=== PATIENT | male | born 1950 | race African-American/Black ===

== ENCOUNTER → 2016-08-12 | Outpatient (CLI) | payer BC ==
[2016-08-13 11:03] LABS: PROSTATE SPECIFIC ANTIGEN 0.1 ng/mL (0.0-4.0); PSA % FREE <10.0 % (.); PSA FREE <0.01 ng/mL
== END ==
LOC: OD 07:26
PROVIDERS: ATTEND Urology
DX: C61 Malignant neoplasm of prostate (principal)
CPT/HCPCS: 36415; 84154

== ENCOUNTER → 2016-11-08 | Outpatient (CLI) | payer BC ==
[2016-11-09 12:29] LABS: PROSTATE SPECIFIC ANTIGEN 0.2 ng/mL (0.0-4.0); PSA % FREE <5.0 % (.); PSA FREE <0.01 ng/mL
== END ==
LOC: OD 07:15
PROVIDERS: ATTEND Urology
DX: R97.20 Elevated prostate specific antigen [PSA] (principal)
CPT/HCPCS: 36415; 84154

== ENCOUNTER → 2016-12-16 | Outpatient (CLI) | payer MEDICARE, BC ==
[2016-12-16 08:22] LABS: ABSOLUTE EOSINOPHILS # (AUTO) 0.1 10^3/uL (0.0-0.6); ABSOLUTE LYMPHOCYTES (AUTO) 2.4 10^3/uL (0.5-4.7); ABSOLUTE MONOCYTES (AUTO) 0.3 10^3/uL (0.1-1.4); ABSOLUTE NEUT (AUTO) 2.4 10^3/uL (1.7-8.2); BASOPHILS % (AUTO) 0.9 % (0-2); EOSINOPHILS % (AUTO) 2.8 % (0-6); HEMATOCRIT 44.2 % (37.9-51.0); HEMOGLOBIN 14.2 g/dL (13.5-17.0); HGB HCT DIFFERENCE -1.6; LYMPHOCYTES % (AUTO) 44.9 % (13-45); MEAN CORPUSCULAR HEMOGLOBIN 27.7 pg (27.0-33.4); MEAN CORPUSCULAR HGB CONC 32.2 g/dL (32.0-36.0); MEAN CORPUSCULAR VOLUME 86 fl (80-97); MONOCYTES % (AUTO) 6.4 % (3-13); RED BLOOD COUNT 5.14 10^6/uL (4.35-5.55); RED CELL DISTRIBUTION WIDTH 14.2 % (11.5-14.0); WHITE BLOOD COUNT 5.3 10^3/uL (4.0-10.5)
[2016-12-16 08:43] LABS: BLOOD UREA NITROGEN 13 mg/dL (7-20); CREATININE RESULT 1.09 mg/dL (0.52-1.25)
== END ==
LOC: OD 07:16
PROVIDERS: ATTEND Radiology Radiation Oncology
DX: C61 Malignant neoplasm of prostate (principal); R97.20 Elevated prostate specific antigen [PSA]
CPT/HCPCS: 36415; 82565; 84153; 84520; 85025

== ENCOUNTER → 2016-12-18 | Outpatient (CLI) | payer BC, MEDICARE ==
--- NOTE | 2016-12-18 15:10 | RADIOLOGY REPORT (SQ) ---
EXAM DESCRIPTION: NM WHOLE BODY BONE SCAN COMPLETED DATE/TIME: 12/18/2016 1:21 pm REASON FOR STUDY: PROSTATE CA (C61), ELEVATED PSA (R97.20) C61 MALIGNANT NEOPLASM OF PROSTATE COMPARISON: No available imaging studies for comparison. RADIONUCLIDE AND DOSE: 21.4 millicuries Tc99m MDP. The route of agent administration: Intravenous. ADDITIONAL DRUGS AND DOSES: None. TECHNIQUE: Routine delayed images at 3 hour post radionuclide injection acquired of the bony skeleto n including anterior and posterior whole-body projections and additional focused images as needed. LIMITATIONS: None. FINDINGS: BONES: There is minimal asymmetric uptake in the left knee most likely degenerative in carole ure. No evidence of bony metastatic disease. Minimal uptake in a left posterolateral rib is most li svetlana posttraumatic. KIDNEYS: Symmetric excretion without obstruction. OTHER: No other significant finding. IMPRESSION: No evidence of bony metastatic disease. COMMENT: RS [id number]: Current bone scan is compared with any available plain radiographs, prior bone scans, and CT/MRI. TECHNICAL DOCUMENTATION: JOB ID: [id number] All Rights Reserved
== END ==
LOC: RAD 09:23
PROVIDERS: ATTEND Radiology Radiation Oncology
DX: C61 Malignant neoplasm of prostate (principal); R97.20 Elevated prostate specific antigen [PSA]
CPT/HCPCS: 78306; A9561; Q9969

== ENCOUNTER → 2016-12-20 | Outpatient (CLI) | payer BC, MEDICARE ==
--- NOTE | 2016-12-20 10:47 | RADIOLOGY REPORT (SQ) ---
EXAM DESCRIPTION: CT ABD/PELVIS WITH IV ORAL COMPLETED DATE/TIME: 12/20/2016 10:21 am REASON FOR STUDY: PROSTATE CA (C61) R97.20 ELEVATED PROSTATE SPECIFIC ANTIGEN PSA COMPARISON: Whole-body bone scan 12/18/2016 TECHNIQUE: CT scan of the abdomen and pelvis performed using helical scanning technique with dynamic intravenous contrast injection. No oral contrast. Images reviewed with lung, soft tissue, and bone windows. Reconstructed coronal and sagittal MPR images reviewed. Delayed images for evaluation of the urinary system also acquired. All images stored on PACS. All CT scanners at this facility use dose modulation, iterative reconstruction, and/or weight based d osing when appropriate to reduce radiation dose to as low as reasonably achievable (ALARA). [facility]: Dose Right [facility]: CareDose [facility]: Dose Right [facility]: Teradose 4D [facility]: YouLike CONTRAST TYPE AND DOSE: contrast/concentration: Isovue 370.00 mg/ml; Total Contrast Delivered: 74.0 ml; Total Saline Delivered: 66.0 ml RENAL FUNCTION: Creatinine 1.09 RADIATION DOSE: Up-to-date CT equipment and radiation dose reduction techniques were employed. CTDIv ol: 4.0 - 4.6 mGy. DLP: 423 mGy-cm.. LIMITATIONS: None. FINDINGS: LOWER CHEST: No significant findings. No nodules or infiltrates. Benign calcified granulo mas at the lung bases. LIVER: Normal size. No masses. No dilated ducts. SPLEEN: Normal size. No focal lesions. PANCREAS: No masses. No significant calcifications. No adjacent inflammation or peripancreatic fluid collections. Pancreatic duct not dilated. GALLBLADDER: No identified stones by CT criteria. No inflammatory changes to suggest cholecystitis. ADRENAL GLANDS: No significant masses or asymmetry. RIGHT KIDNEY AND URETER: No solid masses. No significant calcifications. No hydronephrosis or hyd roureter. LEFT KIDNEY AND URETER: No solid masses. No significant calcifications. No hydronephrosis or hydr oureter. AORTA AND VESSELS: No aneurysm. No dissection. Renal arteries, SMA, celiac without stenosis. RETROPERITONEUM: No retroperitoneal adenopathy, hemorrhage or masses. BOWEL AND PERITONEAL CAVITY: No masses or inflammatory changes. No free fluid or peritoneal masses. APPENDIX: Normal. PELVIS: No mass or free fluid. Normal bladder. Surgical clips post prostatectomy. ABDOMINAL WALL: No masses. No hernias. BONES: No significant or acute findings. OTHER: No other significant finding. IMPRESSION: NO SIGNIFICANT OR ACUTE FINDING IN THE ABDOMEN OR PELVIS ON CT SCAN WITH IV CONTRAST. TECHNICAL DOCUMENTATION: JOB ID: [id number] Quality ID # 436: Final reports with documentation of one or more dose reduction techniques (e.g., Au tomated exposure control, adjustment of the mA and/or kV according to patient size, use of iterative reconstruction technique) 2010 [employer]- All Rights Reserved
== END ==
LOC: RAD 09:50
PROVIDERS: ATTEND Radiology Radiation Oncology
DX: C61 Malignant neoplasm of prostate (principal); R97.20 Elevated prostate specific antigen [PSA]
CPT/HCPCS: 74177

== ENCOUNTER → 2016-12-24 | Outpatient (CLI) | payer BC ==
[2016-12-24 10:41] LABS: BLOOD UREA NITROGEN 16 mg/dL (7-20); CREATININE RESULT 1.14 mg/dL (0.52-1.25)
== END ==
LOC: OD 09:18
PROVIDERS: ATTEND Radiology Radiation Oncology
DX: C61 Malignant neoplasm of prostate (principal); R97.20 Elevated prostate specific antigen [PSA]
CPT/HCPCS: 36415; 82565; 84520

== ENCOUNTER → 2017-05-30 | Outpatient (CLI) | payer BC | LOC: OD 07:33 | PROVIDERS: ATTEND Radiology Radiation Oncology | DX: C61 Malignant neoplasm of prostate (principal); R97.20 Elevated prostate specific antigen [PSA] | CPT/HCPCS: 36415; 84153 ==

== ENCOUNTER → 2017-08-29 | Outpatient (CLI) | payer BC, MEDICARE | LOC: OD 07:36 | PROVIDERS: ATTEND Radiology Radiation Oncology | DX: C61 Malignant neoplasm of prostate (principal) | CPT/HCPCS: 36415; 84153 ==

== ENCOUNTER → 2017-12-05 | Outpatient (CLI) | payer BC, MEDICARE | LOC: OD 08:21 | PROVIDERS: ATTEND Radiology Radiation Oncology | DX: C61 Malignant neoplasm of prostate (principal); R97.20 Elevated prostate specific antigen [PSA] | CPT/HCPCS: 36415; 84153 ==

== ENCOUNTER 2019-09-07 16:37 | Inpatient (IN) | payer BC ==
[~2019-09-07 16:37] MED LIST: GLYCOPYRROLATE 1 MG/5 ML VIAL ONE; KETOROLAC TROMETHAMINE 60 MG/2 ML SDV ONE; LIDOCAINE 2% INJ-PF (20 MG/ML) 2 ML AMPUL ONE; NEOSTIGMINE METHYLSULFATE 10 MG/10 ML VIAL ONE; ONDANSETRON HCL INJ/PF 4 MG/2 ML SDV ONE; ROCURONIUM BROMIDE INJ 50 MG/5 ML VIAL IV ONE; SUCCINYLCHOLINE CHLORIDE INJ 200 MG/10 ML VIAL ONE
[2019-09-07] MEDS ORDERED: NORMAL SALINE 1000 ML 1,000 ML IV PRN (17:18)
[2019-09-07] MEDS ORDERED: INFLUENZA QUAD (6MOS+) 2019-20 VAC 0.5 ML SYR IM ONE (17:29)
[2019-09-07] MEDS ORDERED: HYDROMORPHONE HCL INJ/PF 2 MG/ML AMPULE ONE ×2 (17:41→21:27)
[2019-09-07 18:13] LABS: HEMATOCRIT 42.4 % (37.9-51.0); HEMOGLOBIN 14.4 g/dL (13.5-17.0); MEAN CORPUSCULAR HEMOGLOBIN 28.8 pg (27.0-33.4); MEAN CORPUSCULAR VOLUME 85 fl (80-97); PLATELET COUNT 165 10^3/uL (150-450); RED BLOOD COUNT 5.01 10^6/uL (4.35-5.55); RED CELL DISTRIBUTION WIDTH 13.9 % (11.5-14.0); WHITE BLOOD COUNT 7.8 10^3/uL (4.0-10.5)
[2019-09-07 18:31] LABS: ALKALINE PHOSPHATASE 79 U/L (38-126); ANION GAP 9 (5-19); ASPARTATE AMINO TRANSFERASE 27 U/L (17-59); BILIRUBIN,TOTAL 1.7 mg/dL (0.2-1.3); BLOOD UREA NITROGEN 17 mg/dL (7-20); CALCIUM 9.6 mg/dL (8.4-10.2); CARBON DIOXIDE 29 mmol/L (22-30); CHLORIDE 101 mmol/L (98-107); GLUCOSE 132 mg/dL (75-110); POTASSIUM 3.4 mmol/L (3.6-5.0); TOTAL PROTEIN 7.3 g/dL (6.3-8.2)
--- NOTE | 2019-09-07 20:23 | RADIOLOGY REPORT (SQ) ---
EXAM DESCRIPTION: CT ABDOMEN PELVIS WITH IV CONTRAST COMPLETED DATE/TME: 09/07/2019 00:00 CLINICAL HISTORY: 69 years, Male, Abdominal pain/vomiting COMPARISON: Multiple priors, most recent from 12/20/2016 TECHNIQUE: Contrast enhanced CT of the abdomen/pelvis was performed. Images were obtained after the uneventful administration of 100 mL of Omnipaque 350 intravenous contrast. Images stored on PACS. All CT scanners at this facility use dose modulation, iterative reconstruction, and/or weight based dosing when appropriate to reduce radiation dose to as low as reasonably achievable (ALARA). [facility]: Dose Right [facility]: CareDose [facility]: Dose Right [facility]: Teradose 4D [facility]: PhotoTLC LIMITATIONS: None. FINDINGS: Limited evaluation of the lower chest reveals bands of opacity about both lung bases, indicating areas of atelectasis and/or scar. Calcifications are noted about the coronary vessels. There is a trace pericardial effusion. Liver enhances normally. Spleen, pancreas, bladder, and both adrenal glands appear normal. Both kidneys enhance symmetrically. There is no hydronephrosis or hydroureter. The urinary bladder is partially collapsed, thus its evaluation is limited. Multiple surgical clips are noted about the low pelvis at the expected site of the prostate. The large bowel is overall collapsed. Appendix is not visualized; however, no pericecal inflammatory changes are appreciated. The stomach is diffusely distended with fluid. In addition, there is segmental dilatation of small bowel loops within the left hemiabdomen. 2 transition points are identified, specifically on image 42 of series 3 as well as image 46 of series 3. The small bowel located in between these 2 transition sites appears mildly thick-walled. In addition, there is mild infiltration of the mesentery at the site with associated small amount of free mesenteric fluid. The small bowel distal to the second transition point is diffusely collapsed. Calcifications are evident about the abdominal aorta. Otherwise, vascular structures appeared opacify with contrast normally. No lymphadenopathy is appreciated. Bone windows show no destructive osseous lesions. IMPRESSION: Overall, findings indicate a closed loop small bowel obstruction located within the left hemiabdomen. Associated mild wall thickening is noted about the small bowel intervening the two transition points. In addition, there is a small amount of reactive mesenteric fluid as well as inflammation. Trace pericardial effusion. TECHNICAL DOCUMENTATION: Quality ID # 436: Final reports with documentation of one or more dose reduction techniques (e.g., Automated exposure control, adjustment of the mA and/or kV according to patient size, use of iterative reconstruction technique) copyright 2011 [employer]- All Rights Reserved
[2019-09-07] MEDS ORDERED: DEXTROSE 5%-LACTATED RINGERS 1,000 ML IV PRN (20:47)
[2019-09-07] MEDS ORDERED: LABETALOL HCL INJ 20 MG/4 ML DISP.SYRIN IV PRN (20:51)
--- NOTE | 2019-09-07 20:58 | PDOC H&P ---
History of Present Illness Admission Date/PCP: 09/07/19 16:37 ESPINOZA VALLE MD History of Present Illness: FLORI GARCIA is a 69 year old male, He came to the office today for evaluation of 1 day history of abdominal pain associated with vomiting, in the office he was evaluated there was tenderness around the umbilical area, there was cough impulse, he has an incision above the umbilicus, patient stated that the decision was when he had robotic prostatectomy. I was particularly concerned about obstruction or incarcerated small bowel so I offered the hospital admission directly for further evaluation. He was kept n.p.o. CAT scan of the abdomen and pelvis with IV contrast was obtained it demonstrated a closed-loop small bowel obstruction located within the left hemiabdomen. Associated mild wall thickening is noted of the small bowel intervening the 2 transition points also found was a small amount of reactive mesenteric fluid. I spoke to Dr. lieberman the surgeon concrete polisher he was kind enough to see the patient in consultation patient will require laparotomy tonight Past Medical History Cardiac Medical History: Reports: Hypertension - on meds Malignancy Medical History: Reports: Other - Prostate cancer Musculoskeltal Medical History: Reports: Arthritis - back Psychiatric Medical History: Denies: Depression Hematology: Denies: Anemia Social History Smoking Status: Former Smoker Cigarettes Packs Per Day: 1 Electronic Cigarette use?: No Cigars Per Day: 0 Pipes Per Day: 0 Number of Years Smokin Last Time Smoked: 06/16/2004 Frequency of Alcohol Use: None Hx Recreational Drug Use: No Hx Prescription Drug Abuse: No Family History Family History: Reviewed & Not Pertinent Parental Family History Reviewed: Yes Children Family History Reviewed: Yes Sibling(s) Family History Reviewed.: Yes Medication/Allergy Home Medications: Metoprolol Succinate [Toprol XL 100 mg Tablet] 50 mg PO DAILY 07/24/15 Amlodipine Besylate [Norvasc 10 mg Tablet] 10 mg PO DAILY 09/07/19 Losartan Potassium [Cozaar 25 mg Tablet] 25 mg PO DAILY 09/07/19 Sildenafil Citrate 100 mg PO DAILY PRN 09/07/19 Tamsulosin HCl [Flomax] 0.4 mg PO DAILY 09/07/19 Allergies/Adverse Reactions: No Known Allergies Allergy (Verified 09/07/19 18:56) Review of Systems Constitutional: ABSENT: chills, fever(s), headache(s), weight gain, weight loss Eyes: ABSENT: visual disturbances Ears: ABSENT: hearing changes Cardiovascular: ABSENT: chest pain, dyspnea on exertion, edema, orthropnea, palpitations Respiratory: ABSENT: cough, hemoptysis Gastrointestinal: PRESENT: abdominal pain, vomiting. ABSENT: constipation, diarrhea, hematemesis, hematochezia, nausea Genitourinary: ABSENT: dysuria, hematuria Musculoskeletal: ABSENT: joint swelling Integumentary: ABSENT: rash, wounds Neurological: ABSENT: abnormal gait, abnormal speech, confusion, dizziness, focal weakness, syncope Psychiatric: ABSENT: anxiety, depression, homidical ideation, suicidal ideation Endocrine: ABSENT: cold intolerance, heat intolerance, menstrual abnormalities, polydipsia, polyuria Hematologic/Lymphatic: ABSENT: easy bleeding, easy bruising, lymphadenopathy Physical Exam Vital Signs: Temp Pulse Resp BP Pulse Ox 98.5 F 65 20 161/76 H 100 09/07/19 17:09 09/07/19 17:09 09/07/19 17:09 09/07/19 17:09 09/07/19 17:09 Intake & Output 09/06/19 09/07/19 09/08/19 06:59 06:59 06:59 Weight 72.6 kg General appearance: PRESENT: no acute distress Eye exam: PRESENT: PERRLA Respiratory exam: PRESENT: clear to auscultation heidi Cardiovascular exam: PRESENT: +S1, +S2 GI/Abdominal exam: PRESENT: tenderness Neurological exam: PRESENT: alert, CN II-XII grossly intact Results Laboratory Results: 09/07/19 18:03 09/07/19 18:03 09/07/19 09/07/19 18:03 18:03 WBC 7.8 RBC 5.01 Hgb 14.4 Hct 42.4 MCV 85 MCH 28.8 MCHC 34.0 RDW 13.9 Plt Count 165 Sodium 138.6 Potassium 3.4 L Chloride 101 Carbon Dioxide 29 Anion Gap 9 BUN 17 Creatinine 0.95 Est GFR ( Amer) > 60 Glucose 132 H Calcium 9.6 Total Bilirubin 1.7 H AST 27 Alkaline Phosphatase 79 Total Protein 7.3 Albumin 4.0 Impressions: Abdomen/Pelvis CT 09/07/19 00:00 IMPRESSION: Overall, findings indicate a closed loop small bowel obstruction located within the left hemiabdomen. Associated mild wall thickening is noted about the small bowel intervening the two transition points. In addition, there is a small amount of reactive mesenteric fluid as well as inflammation. Trace pericardial effusion. TECHNICAL DOCUMENTATION: Quality ID # 436: Final reports with documentation of one or more dose reduction techniques (e.g., Automated exposure control, adjustment of the mA and/or kV according to patient size, use of iterative reconstruction technique) copyright 2011 [employer]- All Rights Reserved Assessment & Plan - Diagnosis (1) Small bowel obstruction Is this a current diagnosis for this admission?: Yes Plan: Consultation obtained from surgery, patient will require emergent laparotomy tonight (2) Essential (primary) hypertension Is this a current diagnosis for this admission?: Yes Plan: The blood pressure is elevated, he normally uses ARB for the control blood pressure but a beta-naveed will be a better option at this time because he is going for surgery, ARB is also associated with postoperative hypotension, patient will be started on labetalol 20 mg IV every 4 hours to hold for systolic below 120 (3) Personal history of malignant neoplasm of prostate Is this a current diagnosis for this admission?: Yes Plan: This was treated with robotic prostatectomy
--- NOTE | 2019-09-07 21:24 | PDOC CONSULTATION ---
Consultation Consult Date: 09/07/19 Provider Consulted: FAVIAN ALMANZA History of Present Illness Admission Date/PCP: 09/07/19 20:47 ESPINOZA VALLE MD Patient complains of: Nausea vomiting History of Present Illness: FLORI GARCIA is a 69 year old male with history of robotic prostatectomy s everal years ago and known history of incisional hernia at trocar site at the supraumbilical region now presenting with 1 day history of abdominal distention with bilious emesis. Patient has had some pain at the supraumbilical trocar site as well today. Was noted with some tenderness at this region. But he has been having the sort of symptoms for a while: what is unusual today is his diffuse abdominal distention and bilious emesis. Past Medical History Cardiac Medical History: Reports: Hypertension - on meds Denies: Coronary Artery Disease, Myocardial Infarction Pulmonary Medical History: Denies: Asthma, Bronchitis, Chronic Obstructive Pulmonary Disease (COPD), Pneumonia Neurological Medical History: Denies: Seizures Musculoskeltal Medical History: Reports: Arthritis - back Psychiatric Medical History: Denies: Depression Hematology: Denies: Anemia Past Surgical History Past Surgical History: Reports: Other - Robotic prostatectomy followed by radiation treatment Social History Smoking Status: Former Smoker Cigarettes Packs Per Day: 1 Electronic Cigarette use?: No Cigars Per Day: 0 Pipes Per Day: 0 Number of Years Smokin Last Time Smoked: 06/16/2004 Frequency of Alcohol Use: None - Drink heavily multiple years ago. Hx Recreational Drug Use: No Hx Prescription Drug Abuse: No Family History Family History: Reviewed & Not Pertinent Parental Family History Reviewed: Yes Children Family History Reviewed: Yes Sibling(s) Family History Reviewed.: Yes Medication/Allergy Home Medications: Metoprolol Succinate [Toprol XL 100 mg Tablet] 50 mg PO DAILY 07/24/15 Amlodipine Besylate [Norvasc 10 mg Tablet] 10 mg PO DAILY 09/07/19 Losartan Potassium [Cozaar 25 mg Tablet] 25 mg PO DAILY 09/07/19 Sildenafil Citrate 100 mg PO DAILY PRN 09/07/19 Tamsulosin HCl [Flomax] 0.4 mg PO DAILY 09/07/19 Allergies/Adverse Reactions: No Known Allergies Allergy (Verified 09/07/19 18:56) Review of Systems All systems: reviewed and no additional remarkable complaints except as stated Gastrointestinal: PRESENT: as per HPI Physical Exam Vital Signs: Temp Pulse Resp BP Pulse Ox 98.6 F 75 15 153/87 H 100 09/07/19 20:49 09/07/19 20:49 09/07/19 20:49 09/07/19 20:49 09/07/19 20:49 Intake & Output 09/06/19 09/07/19 09/08/19 06:59 06:59 06:59 Weight 72.6 kg General appearance: PRESENT: no acute distress, cooperative Eye exam: PRESENT: conjunctiva pink Neck exam: PRESENT: other - Supple with no tenderness and no masses Respiratory exam: PRESENT: clear to auscultation heidi Cardiovascular exam: PRESENT: RRR GI/Abdominal exam: PRESENT: other - Distended, soft but fairly tight without significant tenderness. Patient does have a supraumbilical midline incision with a palpable bulge that is reducible. Neurological exam: PRESENT: alert, awake Psychiatric exam: PRESENT: appropriate affect Skin exam: PRESENT: warm Results Laboratory Results: 09/07/19 18:03 09/07/19 18:03 09/07/19 09/07/19 18:03 18:03 WBC 7.8 RBC 5.01 Hgb 14.4 Hct 42.4 MCV 85 MCH 28.8 MCHC 34.0 RDW 13.9 Plt Count 165 Sodium 138.6 Potassium 3.4 L Chloride 101 Carbon Dioxide 29 Anion Gap 9 BUN 17 Creatinine 0.95 Est GFR ( Amer) > 60 Glucose 132 H Calcium 9.6 Total Bilirubin 1.7 H AST 27 Alkaline Phosphatase 79 Total Protein 7.3 Albumin 4.0 Impressions: Abdomen/Pelvis CT 09/07/19 00:00 IMPRESSION: Overall, findings indicate a closed loop small bowel obstruction located within the left hemiabdomen. Associated mild wall thickening is noted about the small bowel intervening the two transition points. In addition, there is a small amount of reactive mesenteric fluid as well as inflammation. Trace pericardial effusion. TECHNICAL DOCUMENTATION: Quality ID # 436: Final reports with documentation of one or more dose reduction techniques (e.g., Automated exposure control, adjustment of the mA and/or kV according to patient size, use of iterative reconstruction technique) copyright 2011 [employer]- All Rights Reserved Assessment & Plan - Diagnosis (1) Small bowel obstruction Is this a current diagnosis for this admission?: Yes Plan: CT scan concerning for closed-loop obstruction with bowel wall thickening and mesenteric inflammatory changes. In light of the CT scan finding I have recommended to the patient exploratory laparotomy with lysis of adhesions and possible bowel resection. I have explained to the patient the risk of nonoperative management in this setting, mainly risk of bowel ischemia and . I strongly feel that immediate surgery is the best option for the patient. I have discussed with the patient the risk and benefits of the surgery including risk mistaken diagnosis, infection, bleeding, adjacent structure injury such as bowel injury, risk of recurrent bowel obstruction in the future, and heart lung complication risks.. Also risk of abdominal hernia formation. I will plan repair of his incisional hernia at the same time as his surgery and there is risk of hernia recurrence. Patient understands and agrees to proceed. (2) Incisional hernia Is this a current diagnosis for this admission?: Yes Plan: I do not think it is playing a role in the bowel obstruction however we will plan repair at the same time as a surgery. Patient understands risk of hernia recurrence.
[2019-09-07] MEDS: ENOXAPARIN SODIUM INJ 40 MG/0.4 ML DISP.SYRIN SUBCUT SCH (21:26)
[2019-09-07] MEDS ORDERED: FENTANYL CITRATE INJ/PF 250 MCG/5 ML AMPULE ONE (21:27)
[2019-09-07] MEDS ORDERED: MIDAZOLAM 2 MG/2 ML INJ ONE (21:27)
--- NOTE | 2019-09-07 21:27 | RADIOLOGY REPORT (SQ) ---
EXAM DESCRIPTION: XR CHEST 1 VIEW COMPLETED DATE/TME: 09/07/2019 20:50 CLINICAL HISTORY: 69 years, Male, pre op -small bowel obstruction COMPARISON: Prior study from 07/24/2015 NUMBER OF VIEWS: One TECHNIQUE: Single frontal view of the chest was obtained. LIMITATIONS: None. FINDINGS: Cardiac and mediastinal contours are stable. Lungs are clear. No pleural effusion or pneumothorax. IMPRESSION: No acute disease. copyright 2010 [employer]- All Rights Reserved
[2019-09-07] MEDS ORDERED: PROPOFOL INJ 200 MG/20 ML VIAL IV ONE (21:28)
[2019-09-07] MEDS ORDERED: BUPIVACAINE HCL 0.25 % INJ/PF (2.5 MG/1 ML) 30 ML VIAL ONE (21:49)
[2019-09-07] MEDS ORDERED: CEFAZOLIN INJ 1 GM VIAL ONE (21:58)
[2019-09-08] MEDS ORDERED: DIPHENHYDRAMINE HCL 50 MG/ML VIAL IV PRN (00:07)
[2019-09-08] MEDS ORDERED: ONDANSETRON HCL INJ/PF 4 MG/2 ML SDV IV PRN (00:07)
[2019-09-08] MEDS ORDERED: MORPHINE SULFATE 10 MG/ML INJ IV PRN (00:07)
[2019-09-08] MEDS ORDERED: PROMETHAZINE HCL INJ 25 MG/1 ML VIAL IV PRN (00:07)
[2019-09-08] MEDS ORDERED: OXYCODONE-ACETAMINOPHEN 5-325 MG TABLET PO PRN ×2 (00:07)
[2019-09-08] MEDS ORDERED: MEPERIDINE HCL/PF INJ 25 MG/1 ML DISP.SYRIN IV PRN (00:07)
[2019-09-08] MEDS ORDERED: FENTANYL CITRATE INJ/PF 100 MCG/2 ML AMPUL IV PRN ×3 (00:07)
--- NOTE | 2019-09-08 00:16 | Operative Report ---
Operative Report DATE OF SURGERY: 09/07/19 PREOPERATIVE DIAGNOSIS: Small bowel obstruction, incisional hernia POSTOPERATIVE DIAGNOSIS: Small bowel obstruction, incisional hernia OPERATION: Exploratory laparotomy, lysis of adhesions, incisional hernia repair. SURGEON: FAVIAN ALMANZA ANESTHESIA: GA TISSUE REMOVED OR ALTERED: Hernia sac removed but not submitted to pathology. COMPLICATIONS: None ESTIMATED BLOOD LOSS: Minimal INTRAOPERATIVE FINDINGS: Approximately 2 cm fascial defect at the supraumbilical region consistent with an incisional hernia but no evidence of incarceration at this point. Serous free peritoneal fluid. Small bowel obstruction at the distal jejunal level with a loop of jejunum that appeared edematous and erythematous that likely herniated through an adhesion between the omentum and the small bowel. The very distal terminal ileum with a fibrous adhesion with an acutely angled turn. PROCEDURE: Informed consent was obtained. Patient was brought to the operating room and placed on the operating table in the supine position. After satisfactory induction of general anesthesia patient's abdomen was prepped and draped in usual sterile fashion. A midline incision was made beginning just above his pre-existing supraumbilical scar and extending it to below the umbilicus. Dissection was carried down and the peritoneal cavity was entered without difficulty at the level of the umbilicus. The fascia was incised inferiorly and then superiorly. The incisional hernia fascial defect was clearly defined and the hernia sac was excised but not submitted to pathology. There was no evidence of bowel incarceration in the hernia sac. The fascial defect had to be extended superiorly in order to complete the exploratory laparotomy. There was some serous peritoneal fluid. The small bowel was eviscerated. The distal small bowel appeared decompressed. The small bowel was run more proximally where I encountered a loop of bowel that was erythematous and edematous. This loop of bowel was gently pulled out of the abdomen. The bowel proximal to this area appeared normal with no erythema and was slightly distended. In the left abdomen I encountered omental adhesions which were lysed. I suspect that the loop of bowel had herniated through an internal hernia created by the omental adhesion. The small bowel was run from the ligament of Treitz all the way down to the ileocecal junction. At the very distal aspect of the terminal ileum there was a severely acute angle turn with an associated fibrous adhesion. This fibrous adhesion was sharply dissected away thus relieving this acutely angled turn. Great care was taken to avoid injury to the bowel. Hemostasis appeared to be good. The small bowel was returned into the peritoneal cavity. Palpation of the liver demonstrated normal feeling liver and gallbladder. The NG position was confirmed by palpation. The peritoneal surface felt smooth with no nodularity. On limited palpation of the colon, no obvious abnormalities were noted. The omentum was draped over the small bowel. Sponge needle instrument counts were all correct. The fascial edges were clearly defined to allow closure to include the hernia as part of the closure. Fascia was closed with a running looped PDS suture. Marcaine was injected at the operative site. Skin was closed with ramon. Patient tolerated procedure well with no apparent complications and was taken to the recovery area in stable condition.
[2019-09-08] MEDS ORDERED: PHARMACY COMMUNICATION ORDER MC NR (00:30)
[2019-09-08 00:33] LABS: APPEARANCE,URINE CLEAR; BILIRUBIN,URINE NEGATIVE (NEGATIVE); COLOR,URINE YELLOW; GLUCOSE, URINE NEGATIVE (NEGATIVE); KETONES,URINE NEGATIVE (NEGATIVE); LEUKOCYTE ESTERASE,URINE NEGATIVE (NEGATIVE); NITRITE,URINE NEGATIVE (NEGATIVE); PROTEIN,URINE NEGATIVE (NEGATIVE); URINE SPECIFIC GRAVITY 1.043; UROBILINOGEN,URINE NEGATIVE mg/dL (<2.0)
[2019-09-08 05:16] LABS: ABSOLUTE LYMPHOCYTES (AUTO) 0.8 10^3/uL (0.5-4.7); ABSOLUTE MONOCYTES (AUTO) 0.6 10^3/uL (0.1-1.4); ABSOLUTE NEUT (AUTO) 4.5 10^3/uL (1.7-8.2); BASOPHILS % (AUTO) 0.2 % (0-2); EOSINOPHILS % (AUTO) 0.7 % (0-6); HEMATOCRIT 44.2 % (37.9-51.0); LYMPHOCYTES % (AUTO) 13.7 % (13-45); MEAN CORPUSCULAR HEMOGLOBIN 29.1 pg (27.0-33.4); MEAN CORPUSCULAR HGB CONC 33.9 g/dL (32.0-36.0); MEAN CORPUSCULAR VOLUME 86 fl (80-97); MONOCYTES % (AUTO) 9.7 % (3-13); PLATELET COUNT 156 10^3/uL (150-450); RED BLOOD COUNT 5.15 10^6/uL (4.35-5.55); SEGMENTED NEUTROPHILS % (AUTO) 75.7 % (42-78); TOTAL CELLS COUNTED % (AUTO) 100 %
[2019-09-08 05:29] LABS: ALBUMIN 3.5 g/dL (3.5-5.0); ALKALINE PHOSPHATASE 65 U/L (38-126); ANION GAP 8 (5-19); ASPARTATE AMINO TRANSFERASE 25 U/L (17-59); BILIRUBIN,TOTAL 1.8 mg/dL (0.2-1.3); BLOOD UREA NITROGEN 16 mg/dL (7-20); CALCIUM 9.1 mg/dL (8.4-10.2); CARBON DIOXIDE 30 mmol/L (22-30); CHLORIDE 102 mmol/L (98-107); GLUCOSE 123 mg/dL (75-110); POTASSIUM 3.9 mmol/L (3.6-5.0); TOTAL PROTEIN 6.5 g/dL (6.3-8.2)
[2019-09-08] MEDS: DEXTROSE 5%-LACTATED RINGERS 1,000 ML IV PRN ×2 (08:14→16:06)
[2019-09-08] MEDS: MORPHINE SULFATE 10 MG/ML INJ IV PRN ×2 (08:20→17:06)
[2019-09-08] MEDS ORDERED: LOSARTAN POTASSIUM 25 MG TABLET PO SCH (10:00)
[2019-09-08] MEDS ORDERED: (PENDING PHARMACY ID) (Metoprolol Succinate [Toprol Xl 100 Mg Tablet] 50 MG) PO SCH (10:00)
[2019-09-08] MEDS ORDERED: AMLODIPINE BESYLATE 10 MG TABLET PO SCH (10:00)
[2019-09-08] MEDS: AMLODIPINE BESYLATE 10 MG TABLET NG SCH (10:22)
[2019-09-08] MEDS: LOSARTAN POTASSIUM 25 MG TABLET NG SCH (10:22)
[2019-09-08] MEDS: FAMOTIDINE INJ/PF 20 MG/2 ML SDV IV SCH ×2 (10:22→22:19)
[2019-09-08] MEDS: ENOXAPARIN SODIUM INJ 40 MG/0.4 ML DISP.SYRIN SUBCUT SCH (10:22)
--- NOTE | 2019-09-08 11:19 | EKG REPORT ---
SEVERITY:- ABNORMAL ECG - SINUS RHYTHM MULTIPLE VENTRICULAR PREMATURE COMPLEXES : Confirmed by: Enoch Sarmiento MD 08-Sep-2019 11:18:35
[2019-09-08] MEDS ORDERED: PHENOL/SODIUM PHENOLATE 100 SPRAY/177 ML BOTTLE PO PRN (13:22)
--- NOTE | 2019-09-08 13:44 | PDOC PROGRESS REPORT ---
Subjective Progress Note for:: 09/08/19 Reason For Visit: SMALL BOWEL OBSTRUCTION Physical Exam Vital Signs: Temp Pulse Resp BP Pulse Ox 98.6 F 73 16 141/67 H 99 09/08/19 11:40 09/08/19 11:40 09/08/19 11:40 09/08/19 11:40 09/08/19 11:40 Intake & Output 09/07/19 09/08/19 09/09/19 06:59 06:59 06:59 Intake Total 3500 1000 Output Total 1550 250 Balance 1950 750 Weight 76.1 kg Results Laboratory Results: 09/08/19 04:51 09/08/19 04:51 09/07/19 09/07/19 09/07/19 18:03 18:03 20:15 WBC 7.8 RBC 5.01 Hgb 14.4 Hct 42.4 MCV 85 MCH 28.8 MCHC 34.0 RDW 13.9 Plt Count 165 Seg Neutrophils % Sodium 138.6 Potassium 3.4 L Chloride 101 Carbon Dioxide 29 Anion Gap 9 BUN 17 Creatinine 0.95 Est GFR ( Amer) > 60 Glucose 132 H Calcium 9.6 Total Bilirubin 1.7 H AST 27 Alkaline Phosphatase 79 Total Protein 7.3 Albumin 4.0 Urine Color YELLOW Urine Appearance CLEAR Urine pH 6.0 Ur Specific [place] 1.043 Urine Protein NEGATIVE Urine Glucose (UA) NEGATIVE Urine Ketones NEGATIVE Urine Blood NEGATIVE Urine Nitrite NEGATIVE Ur Leukocyte Esterase NEGATIVE Urine WBC (Auto) 0 Urine RBC (Auto) 1 Blood Type Antibody Screen 09/07/19 09/08/19 09/08/19 21:40 04:51 04:51 WBC 6.0 RBC 5.15 Hgb 15.0 Hct 44.2 MCV 86 MCH 29.1 MCHC 33.9 RDW 14.0 Plt Count 156 Seg Neutrophils % 75.7 Sodium 139.9 Potassium 3.9 Chloride 102 Carbon Dioxide 30 Anion Gap 8 BUN 16 Creatinine 0.90 Est GFR ( Amer) > 60 Glucose 123 H Calcium 9.1 Total Bilirubin 1.8 H AST 25 Alkaline Phosphatase 65 Total Protein 6.5 Albumin 3.5 Urine Color Urine Appearance Urine pH Ur Specific [place] Urine Protein Urine Glucose (UA) Urine Ketones Urine Blood Urine Nitrite Ur Leukocyte Esterase Urine WBC (Auto) Urine RBC (Auto) Blood Type B POSITIVE Antibody Screen NEGATIVE Impressions: Abdomen/Pelvis CT 09/07/19 00:00 IMPRESSION: Overall, findings indicate a closed loop small bowel obstruction located within the left hemiabdomen. Associated mild wall thickening is noted about the small bowel intervening the two transition points. In addition, there is a small amount of reactive mesenteric fluid as well as inflammation. Trace pericardial effusion. TECHNICAL DOCUMENTATION: Quality ID # 436: Final reports with documentation of one or more dose reduction techniques (e.g., Automated exposure control, adjustment of the mA and/or kV according to patient size, use of iterative reconstruction technique) copyright 2011 [facility]- All Rights Reserved Chest X-Ray 09/07/19 20:50 IMPRESSION: No acute disease. copyright 2011 [facility]- All Rights Reserved Assessment & Plan - Diagnosis (1) Small bowel obstruction Is this a current diagnosis for this admission?: Yes - Plan Summary Plan Summary: This is a 69-year-old male status post ex lap for small bowel obstruction. The patient is doing well this morning. He denies any flatus at this time. He denies fevers, chills, nausea, vomiting. He does report incisional pain, that is relieved with intravenous medications. I have encouraged the patient to ambulate today. I will remove his [place] catheter. Leave NG to suction. Aggressive pulmonary toilet. Ambulate. Awaiting bowel function.
--- NOTE | 2019-09-08 18:36 | PDOC PROGRESS REPORT ---
Subjective Progress Note for:: 09/08/19 Subjective:: Patient seen by the bedside, status post laparotomy, he has no peristalsis yet still n.p.o. NG tube in place Reason For Visit: SMALL BOWEL OBSTRUCTION Physical Exam Vital Signs: Temp Pulse Resp BP Pulse Ox 98.3 F 76 18 148/73 H 97 09/08/19 15:27 09/08/19 15:27 09/08/19 15:27 09/08/19 15:27 09/08/19 15:27 Intake & Output 09/07/19 09/08/19 09/09/19 06:59 06:59 06:59 Intake Total 3500 2000 Output Total 1550 450 Balance 1950 1550 Weight 76.1 kg General appearance: PRESENT: no acute distress Eye exam: PRESENT: PERRLA Respiratory exam: PRESENT: clear to auscultation hedii Cardiovascular exam: PRESENT: +S1, +S2 GI/Abdominal exam: PRESENT: soft, other - bandage in place Neurological exam: PRESENT: alert, CN II-XII grossly intact Results Laboratory Results: 09/08/19 04:51 09/08/19 04:51 09/07/19 09/07/19 09/07/19 18:03 20:15 21:40 WBC RBC Hgb Hct MCV MCH MCHC RDW Plt Count Seg Neutrophils % Sodium 138.6 Potassium 3.4 L Chloride 101 Carbon Dioxide 29 Anion Gap 9 BUN 17 Creatinine 0.95 Est GFR ( Amer) > 60 Glucose 132 H Calcium 9.6 Total Bilirubin 1.7 H AST 27 Alkaline Phosphatase 79 Total Protein 7.3 Albumin 4.0 Urine Color YELLOW Urine Appearance CLEAR Urine pH 6.0 Ur Specific [place] 1.043 Urine Protein NEGATIVE Urine Glucose (UA) NEGATIVE Urine Ketones NEGATIVE Urine Blood NEGATIVE Urine Nitrite NEGATIVE Ur Leukocyte Esterase NEGATIVE Urine WBC (Auto) 0 Urine RBC (Auto) 1 Blood Type B POSITIVE Antibody Screen NEGATIVE 09/08/19 09/08/19 04:51 04:51 WBC 6.0 RBC 5.15 Hgb 15.0 Hct 44.2 MCV 86 MCH 29.1 MCHC 33.9 RDW 14.0 Plt Count 156 Seg Neutrophils % 75.7 Sodium 139.9 Potassium 3.9 Chloride 102 Carbon Dioxide 30 Anion Gap 8 BUN 16 Creatinine 0.90 Est GFR ( Amer) > 60 Glucose 123 H Calcium 9.1 Total Bilirubin 1.8 H AST 25 Alkaline Phosphatase 65 Total Protein 6.5 Albumin 3.5 Urine Color Urine Appearance Urine pH Ur Specific [place] Urine Protein Urine Glucose (UA) Urine Ketones Urine Blood Urine Nitrite Ur Leukocyte Esterase Urine WBC (Auto) Urine RBC (Auto) Blood Type Antibody Screen Impressions: Abdomen/Pelvis CT 09/07/19 00:00 IMPRESSION: Overall, findings indicate a closed loop small bowel obstruction located within the left hemiabdomen. Associated mild wall thickening is noted about the small bowel intervening the two transition points. In addition, there is a small amount of reactive mesenteric fluid as well as inflammation. Trace pericardial effusion. TECHNICAL DOCUMENTATION: Quality ID # 436: Final reports with documentation of one or more dose reduction techniques (e.g., Automated exposure control, adjustment of the mA and/or kV according to patient size, use of iterative reconstruction technique) copyright 2011 [employer]- All Rights Reserved Chest X-Ray 09/07/19 20:50 IMPRESSION: No acute disease. copyright 2011 [employer]- All Rights Reserved Assessment & Plan - Diagnosis (1) Small bowel obstruction Is this a current diagnosis for this admission?: Yes Plan: Status post day 1 postoperative (2) Essential (primary) hypertension Is this a current diagnosis for this admission?: Yes Plan: Continue intravenous labetalol, once p.o. resumes patient will be started back on metoprolol (3) Personal history of malignant neoplasm of prostate Is this a current diagnosis for this admission?: Yes - Time Time Spent with patient: 25-34 minutes Level of Care: MEDICAL
[2019-09-09] MEDS: DEXTROSE 5%-LACTATED RINGERS 1,000 ML IV PRN ×3 (00:12→21:41)
[2019-09-09] MEDS: HYDROMORPHONE HCL INJ/PF 2 MG/ML AMPULE IV PRN ×4 (00:12→20:14)
[2019-09-09 06:38] LABS: ABSOLUTE LYMPHOCYTES (AUTO) 1.1 10^3/uL (0.5-4.7); ABSOLUTE MONOCYTES (AUTO) 0.5 10^3/uL (0.1-1.4); ABSOLUTE NEUT (AUTO) 4.2 10^3/uL (1.7-8.2); BASOPHILS % (AUTO) 0.2 % (0-2); EOSINOPHILS % (AUTO) 0.8 % (0-6); HEMATOCRIT 40.5 % (37.9-51.0); HEMOGLOBIN 13.7 g/dL (13.5-17.0); LYMPHOCYTES % (AUTO) 19.2 % (13-45); MEAN CORPUSCULAR HEMOGLOBIN 28.8 pg (27.0-33.4); MEAN CORPUSCULAR HGB CONC 33.8 g/dL (32.0-36.0); MEAN CORPUSCULAR VOLUME 85 fl (80-97); MONOCYTES % (AUTO) 8.5 % (3-13); PLATELET COUNT 163 10^3/uL (150-450); RED BLOOD COUNT 4.75 10^6/uL (4.35-5.55); SEGMENTED NEUTROPHILS % (AUTO) 71.3 % (42-78); TOTAL CELLS COUNTED % (AUTO) 100 %
--- NOTE | 2019-09-09 08:46 | PDOC PROGRESS REPORT ---
Subjective Progress Note for:: 09/09/19 Subjective:: Feels okay. Not passing any gas. Reason For Visit: SMALL BOWEL OBSTRUCTION Physical Exam Vital Signs: Temp Pulse Resp BP Pulse Ox 99.1 F 83 17 149/79 H 93 09/09/19 07:16 09/09/19 07:16 09/09/19 07:16 09/09/19 07:16 09/09/19 07:16 Intake & Output 09/08/19 09/09/19 09/10/19 06:59 06:59 06:59 Intake Total 3500 3000 Output Total 1550 1050 Balance 1950 1950 Weight 76.1 kg 76.1 kg General appearance: PRESENT: no acute distress, cooperative Respiratory exam: PRESENT: clear to auscultation heidi Cardiovascular exam: PRESENT: RRR GI/Abdominal exam: PRESENT: other - Soft, mildly distended, NG output is bilious. Minimal tenderness. Extremities exam: PRESENT: other - No swelling and no tenderness Results Laboratory Results: 09/09/19 06:05 09/08/19 04:51 09/09/19 06:05 WBC 6.0 RBC 4.75 Hgb 13.7 Hct 40.5 MCV 85 MCH 28.8 MCHC 33.8 RDW 14.0 Plt Count 163 Seg Neutrophils % 71.3 Impressions: Abdomen/Pelvis CT 09/07/19 00:00 IMPRESSION: Overall, findings indicate a closed loop small bowel obstruction located within the left hemiabdomen. Associated mild wall thickening is noted about the small bowel intervening the two transition points. In addition, there is a small amount of reactive mesenteric fluid as well as inflammation. Trace pericardial effusion. TECHNICAL DOCUMENTATION: Quality ID # 436: Final reports with documentation of one or more dose reduction techniques (e.g., Automated exposure control, adjustment of the mA and/or kV according to patient size, use of iterative reconstruction technique) copyright 2011 [employer]- All Rights Reserved Chest X-Ray 09/07/19 20:50 IMPRESSION: No acute disease. copyright 2011 [employer]- All Rights Reserved Assessment & Plan - Diagnosis (1) Small bowel obstruction Is this a current diagnosis for this admission?: Yes Plan: That is post lysis of adhesions. Patient looks good postoperatively. However he still does not have resumption of bowel function. With his bilious output through the NG tube we will keep the NG tube in. Encourage ambulation. Await bowel function. (2) Incisional hernia Is this a current diagnosis for this admission?: Yes
[2019-09-09] MEDS: AMLODIPINE BESYLATE 10 MG TABLET NG SCH (09:51)
[2019-09-09] MEDS: FAMOTIDINE INJ/PF 20 MG/2 ML SDV IV SCH ×2 (09:51→21:40)
[2019-09-09] MEDS: LOSARTAN POTASSIUM 25 MG TABLET NG SCH (09:51)
[2019-09-09] MEDS: ENOXAPARIN SODIUM INJ 40 MG/0.4 ML DISP.SYRIN SUBCUT SCH (09:59)
--- NOTE | 2019-09-09 20:19 | PDOC PROGRESS REPORT ---
Subjective Progress Note for:: 09/09/19 Subjective:: Patient seen by the bedside for possible laparotomy he has not passed any gas yet, bowel movement yet to return still n.p.o. with NG tube in place Reason For Visit: SMALL BOWEL OBSTRUCTION Physical Exam Vital Signs: Temp Pulse Resp BP Pulse Ox 99.2 F 77 16 165/74 H 93 09/09/19 15:34 09/09/19 15:34 09/09/19 15:34 09/09/19 15:34 09/09/19 15:34 Intake & Output 09/08/19 09/09/19 09/10/19 06:59 06:59 06:59 Intake Total 3500 4000 Output Total 1550 1050 825 Balance 1950 2950 -825 Weight 76.1 kg 76.1 kg General appearance: PRESENT: no acute distress Eye exam: PRESENT: PERRLA Respiratory exam: PRESENT: clear to auscultation heidi Cardiovascular exam: PRESENT: +S1, +S2 GI/Abdominal exam: PRESENT: soft Neurological exam: PRESENT: alert Results Laboratory Results: 09/09/19 06:05 09/08/19 04:51 09/09/19 06:05 WBC 6.0 RBC 4.75 Hgb 13.7 Hct 40.5 MCV 85 MCH 28.8 MCHC 33.8 RDW 14.0 Plt Count 163 Seg Neutrophils % 71.3 Impressions: Abdomen/Pelvis CT 09/07/19 00:00 IMPRESSION: Overall, findings indicate a closed loop small bowel obstruction located within the left hemiabdomen. Associated mild wall thickening is noted about the small bowel intervening the two transition points. In addition, there is a small amount of reactive mesenteric fluid as well as inflammation. Trace pericardial effusion. TECHNICAL DOCUMENTATION: Quality ID # 436: Final reports with documentation of one or more dose reduction techniques (e.g., Automated exposure control, adjustment of the mA and/or kV according to patient size, use of iterative reconstruction technique) copyright 2011 [employer]- All Rights Reserved Chest X-Ray 09/07/19 20:50 IMPRESSION: No acute disease. copyright 2011 [employer]- All Rights Reserved Assessment & Plan - Diagnosis (1) Small bowel obstruction Is this a current diagnosis for this admission?: Yes (2) Essential (primary) hypertension Is this a current diagnosis for this admission?: Yes Plan: Continue intravenous labetalol, once p.o. resumes patient will be started back on metoprolol (3) Personal history of malignant neoplasm of prostate Is this a current diagnosis for this admission?: Yes - Time Time Spent with patient: 35 or more minutes Level of Care: MEDICAL
[2019-09-10] MEDS: MORPHINE SULFATE 10 MG/ML INJ IV PRN (05:09)
[2019-09-10] MEDS: DEXTROSE 5%-LACTATED RINGERS 1,000 ML IV PRN ×3 (05:09→19:59)
[2019-09-10 05:42] LABS: ABSOLUTE EOSINOPHILS # (AUTO) 0.2 10^3/uL (0.0-0.6); ABSOLUTE LYMPHOCYTES (AUTO) 1.1 10^3/uL (0.5-4.7); ABSOLUTE MONOCYTES (AUTO) 0.6 10^3/uL (0.1-1.4); ABSOLUTE NEUT (AUTO) 2.3 10^3/uL (1.7-8.2); BASOPHILS % (AUTO) 0.4 % (0-2); EOSINOPHILS % (AUTO) 3.8 % (0-6); HEMATOCRIT 40.2 % (37.9-51.0); HEMOGLOBIN 13.6 g/dL (13.5-17.0); LYMPHOCYTES % (AUTO) 26.2 % (13-45); MEAN CORPUSCULAR HEMOGLOBIN 28.7 pg (27.0-33.4); MEAN CORPUSCULAR HGB CONC 33.7 g/dL (32.0-36.0); MEAN CORPUSCULAR VOLUME 85 fl (80-97); MONOCYTES % (AUTO) 13.4 % (3-13); PLATELET COUNT 151 10^3/uL (150-450); RED BLOOD COUNT 4.73 10^6/uL (4.35-5.55); RED CELL DISTRIBUTION WIDTH 13.9 % (11.5-14.0); SEGMENTED NEUTROPHILS % (AUTO) 56.2 % (42-78); TOTAL CELLS COUNTED % (AUTO) 100 %; WHITE BLOOD COUNT 4.2 10^3/uL (4.0-10.5)
[2019-09-10] MEDS: FAMOTIDINE INJ/PF 20 MG/2 ML SDV IV SCH ×2 (09:07→21:37)
[2019-09-10] MEDS: ENOXAPARIN SODIUM INJ 40 MG/0.4 ML DISP.SYRIN SUBCUT SCH (09:08)
[2019-09-10] MEDS: AMLODIPINE BESYLATE 10 MG TABLET NG SCH (09:09)
[2019-09-10] MEDS: LOSARTAN POTASSIUM 25 MG TABLET NG SCH (09:09)
--- NOTE | 2019-09-10 11:17 | PDOC PROGRESS REPORT ---
Subjective Progress Note for:: 09/10/19 Subjective:: Feels well but has not passed any gas yet. Reason For Visit: SMALL BOWEL OBSTRUCTION Physical Exam Vital Signs: Temp Pulse Resp BP Pulse Ox 98.8 F 69 18 160/81 H 95 09/10/19 07:52 09/10/19 07:52 09/10/19 07:52 09/10/19 07:52 09/10/19 07:52 Intake & Output 09/09/19 09/10/19 09/11/19 06:59 06:59 06:59 Intake Total 4000 2000 Output Total 1050 1375 Balance 2950 625 Weight 76.1 kg 76.1 kg General appearance: PRESENT: no acute distress, cooperative Respiratory exam: PRESENT: clear to auscultation heidi Cardiovascular exam: PRESENT: RRR GI/Abdominal exam: PRESENT: other - Soft, mildly distended, mild tenderness at the midline but otherwise no other tenderness. Diminished bowel sounds. NG output is still bile tinged. Extremities exam: PRESENT: other - No swelling and no tenderness. Results Laboratory Results: 09/10/19 05:03 09/08/19 04:51 09/10/19 05:03 WBC 4.2 RBC 4.73 Hgb 13.6 Hct 40.2 MCV 85 MCH 28.7 MCHC 33.7 RDW 13.9 Plt Count 151 Seg Neutrophils % 56.2 Impressions: Abdomen/Pelvis CT 09/07/19 00:00 IMPRESSION: Overall, findings indicate a closed loop small bowel obstruction located within the left hemiabdomen. Associated mild wall thickening is noted about the small bowel intervening the two transition points. In addition, there is a small amount of reactive mesenteric fluid as well as inflammation. Trace pericardial effusion. TECHNICAL DOCUMENTATION: Quality ID # [id number]: Final reports with documentation of one or more dose reduction techniques (e.g., Automated exposure control, adjustment of the mA and/or kV according to patient size, use of iterative reconstruction technique) copyright 2011 [employer]- All Rights Reserved Chest X-Ray 09/07/19 20:50 IMPRESSION: No acute disease. copyright 2011 [employer]- All Rights Reserved Assessment & Plan - Diagnosis (1) Small bowel obstruction Is this a current diagnosis for this admission?: Yes Plan: Status post lysis of adhesions. Still with postoperative ileus. Continue to encourage ambulation. Await bowel function. (2) Incisional hernia Is this a current diagnosis for this admission?: Yes
[2019-09-10] MEDS: HYDROMORPHONE HCL INJ/PF 2 MG/ML AMPULE IV PRN ×2 (16:12→23:22)
--- NOTE | 2019-09-10 20:19 | PDOC PROGRESS REPORT ---
Subjective Progress Note for:: 09/10/19 Subjective:: Patient seen by the bedside for possible laparotomy he has not passed any gas yet, bowel movement yet to return still n.p.o. with NG tube in place Reason For Visit: SMALL BOWEL OBSTRUCTION Physical Exam Vital Signs: Temp Pulse Resp BP Pulse Ox 98.9 F 75 18 157/88 H 96 09/10/19 17:59 09/10/19 17:59 09/10/19 17:59 09/10/19 17:59 09/10/19 17:59 Intake & Output 09/09/19 09/10/19 09/11/19 06:59 06:59 06:59 Intake Total 4000 2000 2000 Output Total 1050 1375 1300 Balance 2950 625 700 Weight 76.1 kg 76.1 kg 76.1 kg General appearance: PRESENT: no acute distress, well-developed, well-nourished Head exam: PRESENT: atraumatic, normocephalic Eye exam: PRESENT: conjunctiva pink, EOMI, PERRLA. ABSENT: scleral icterus Ear exam: PRESENT: normal external ear exam Mouth exam: PRESENT: moist, tongue midline Neck exam: PRESENT: full ROM. ABSENT: carotid bruit, JVD, lymphadenopathy, thyr omegaly Cardiovascular exam: PRESENT: RRR. ABSENT: diastolic murmur, rubs, systolic murmur Pulses: PRESENT: normal dorsalis pedis pul, +2 pedal pulses bilateral Vascular exam: PRESENT: normal capillary refill GI/Abdominal exam: PRESENT: normal bowel sounds, soft. ABSENT: distended, guarding, mass, organolmegaly, rebound, tenderness Rectal exam: PRESENT: deferred Neurological exam: PRESENT: alert, awake, oriented to person, oriented to place, oriented to time, oriented to situation, CN II-XII grossly intact. ABSENT: motor sensory deficit Psychiatric exam: PRESENT: appropriate affect, normal mood. ABSENT: homicidal ideation, suicidal ideation Skin exam: PRESENT: dry, intact, warm. ABSENT: cyanosis, rash Results Laboratory Results: 09/10/19 05:03 09/08/19 04:51 09/10/19 05:03 WBC 4.2 RBC 4.73 Hgb 13.6 Hct 40.2 MCV 85 MCH 28.7 MCHC 33.7 RDW 13.9 Plt Count 151 Seg Neutrophils % 56.2 Impressions: Abdomen/Pelvis CT 09/07/19 00:00 IMPRESSION: Overall, findings indicate a closed loop small bowel obstruction located within the left hemiabdomen. Associated mild wall thickening is noted about the small bowel intervening the two transition points. In addition, there is a small amount of reactive mesenteric fluid as well as inflammation. Trace pericardial effusion. TECHNICAL DOCUMENTATION: Quality ID # 436: Final reports with documentation of one or more dose reduction techniques (e.g., Automated exposure control, adjustment of the mA and/or kV according to patient size, use of iterative reconstruction technique) copyright 2011 [employer]- All Rights Reserved Chest X-Ray 09/07/19 20:50 IMPRESSION: No acute disease. copyright 2011 [employer]- All Rights Reserved Assessment & Plan - Diagnosis (1) Small bowel obstruction Is this a current diagnosis for this admission?: Yes (2) Essential (primary) hypertension Is this a current diagnosis for this admission?: Yes Plan: Continue intravenous labetalol, once p.o. resumes patient will be started back on metoprolol (3) Personal history of malignant neoplasm of prostate Is this a current diagnosis for this admission?: Yes - Time Time Spent with patient: 25-34 minutes Level of Care: MEDICAL
[2019-09-11] MEDS: DEXTROSE 5%-LACTATED RINGERS 1,000 ML IV PRN ×2 (03:51→17:58)
[2019-09-11] MEDS: HYDROMORPHONE HCL INJ/PF 2 MG/ML AMPULE IV PRN (06:36)
[2019-09-11 06:47] LABS: ANION GAP 9 (5-19); BLOOD UREA NITROGEN 7 mg/dL (7-20); CALCIUM 7.2 mg/dL (8.4-10.2); CARBON DIOXIDE 24 mmol/L (22-30); CHLORIDE 103 mmol/L (98-107); GLUCOSE 125 mg/dL (75-110); POTASSIUM 3.3 mmol/L (3.6-5.0)
--- NOTE | 2019-09-11 09:17 | PDOC PROGRESS REPORT ---
Subjective Progress Note for:: 09/11/19 Reason For Visit: SMALL BOWEL OBSTRUCTION Uneventful night; pain controlled; no significant flatus. Minimal ambulation. Physical Exam Vital Signs: Temp Pulse Resp BP Pulse Ox 98.4 F 82 18 149/74 H 94 09/11/19 06:29 09/11/19 06:29 09/11/19 06:29 09/11/19 06:29 09/11/19 06:29 Intake & Output 09/10/19 09/11/19 09/12/19 06:59 06:59 06:59 Intake Total 2000 3000 Output Total 1375 2050 Balance 625 950 Weight 76.1 kg 76.1 kg General appearance: PRESENT: no acute distress GI/Abdominal exam: PRESENT: other - Abdomen is soft midline dressing removed; ramon intact; mild abdominal distention, soft, no peritoneal signs Results Laboratory Results: 09/10/19 05:03 09/11/19 05:41 09/11/19 05:41 Sodium 135.8 L Potassium 3.3 L Chloride 103 Carbon Dioxide 24 Anion Gap 9 BUN 7 Creatinine 0.77 Est GFR ( Amer) > 60 Glucose 125 H Calcium 7.2 L Impressions: Abdomen/Pelvis CT 09/07/19 00:00 IMPRESSION: Overall, findings indicate a closed loop small bowel obstruction located within the left hemiabdomen. Associated mild wall thickening is noted about the small bowel intervening the two transition points. In addition, there is a small amount of reactive mesenteric fluid as well as inflammation. Trace pericardial effusion. TECHNICAL DOCUMENTATION: Quality ID # [id number]: Final reports with documentation of one or more dose reduction techniques (e.g., Automated exposure control, adjustment of the mA and/or kV according to patient size, use of iterative reconstruction technique) copyright 2011 [employer]- All Rights Reserved Chest X-Ray 09/07/19 20:50 IMPRESSION: No acute disease. copyright 2011 [employer]- All Rights Reserved Assessment & Plan - Diagnosis (1) Small bowel obstruction Is this a current diagnosis for this admission?: Yes Plan: Impression: Patient is 3 days post exploratory laparotomy, lysis of adhesions, doing reasonably well, await return of bowel function. Recommendations: 1. We will clamp nasogastric tube; will discontinue if tolerated 2. Up out of bed ambulating in the hallways. Patient may shower. 3. We will provide alternative to narcotics for pain management 4. We will replace potassium was 3.3 this morning. - Time Time Spent: 30 to 50 Minutes Anticipated discharge: Home
[2019-09-11] MEDS: AMLODIPINE BESYLATE 10 MG TABLET NG SCH (09:42)
[2019-09-11] MEDS: POTASSI CL 20 MEQ/50 ML RIDER 20 MEQ/50 ML RTUPB IV SCH ×3 (09:42→14:20)
[2019-09-11] MEDS: ENOXAPARIN SODIUM INJ 40 MG/0.4 ML DISP.SYRIN SUBCUT SCH (09:42)
[2019-09-11] MEDS: FAMOTIDINE INJ/PF 20 MG/2 ML SDV IV SCH ×2 (09:43→21:54)
[2019-09-11] MEDS: METOPROLOL TARTRATE 25 MG TABLET NG SCH ×2 (09:43→21:54)
[2019-09-11] MEDS: LOSARTAN POTASSIUM 25 MG TABLET NG SCH (09:43)
--- NOTE | 2019-09-11 16:31 | PDOC PROGRESS REPORT ---
Subjective Progress Note for:: 09/11/19 Subjective:: Patient seen by the bedside for possible laparotomy he has not passed any gas yet, bowel movement yet to return still n.p.o. with NG tube in place Reason For Visit: SMALL BOWEL OBSTRUCTION Physical Exam Vital Signs: Temp Pulse Resp BP Pulse Ox 98.1 F 73 19 160/82 H 96 09/11/19 15:13 09/11/19 15:13 09/11/19 15:13 09/11/19 15:13 09/11/19 15:13 Intake & Output 09/10/19 09/11/19 09/12/19 06:59 06:59 06:59 Intake Total 2000 3000 99 Output Total 1375 2050 250 Balance 625 950 -151 Weight 76.1 kg 76.1 kg General appearance: PRESENT: no acute distress, well-developed, well-nourished Head exam: PRESENT: atraumatic, normocephalic Eye exam: PRESENT: conjunctiva pink, EOMI, PERRLA. ABSENT: scleral icterus Ear exam: PRESENT: normal external ear exam Mouth exam: PRESENT: moist, tongue midline Neck exam: PRESENT: full ROM. ABSENT: carotid bruit, JVD, lymphadenopathy, thyromegaly Cardiovascular exam: PRESENT: RRR. ABSENT: diastolic murmur, rubs, systolic murmur Pulses: PRESENT: normal dorsalis pedis pul, +2 pedal pulses bilateral Vascular exam: PRESENT: normal capillary refill GI/Abdominal exam: PRESENT: normal bowel sounds, soft. ABSENT: distended, guarding, mass, organolmegaly, rebound, tenderness Rectal exam: PRESENT: deferred Neurological exam: PRESENT: alert, awake, oriented to person, oriented to place, oriented to time, oriented to situation, CN II-XII grossly intact. ABSENT: motor sensory deficit Psychiatric exam: PRESENT: appropriate affect, normal mood. ABSENT: homicidal ideation, suicidal ideation Skin exam: PRESENT: dry, intact, warm. ABSENT: cyanosis, rash Results Laboratory Results: 09/10/19 05:03 09/11/19 05:41 09/11/19 05:41 Sodium 135.8 L Potassium 3.3 L Chloride 103 Carbon Dioxide 24 Anion Gap 9 BUN 7 Creatinine 0.77 Est GFR ( Amer) > 60 Glucose 125 H Calcium 7.2 L Impressions: Abdomen/Pelvis CT 09/07/19 00:00 IMPRESSION: Overall, findings indicate a closed loop small bowel obstruction located within the left hemiabdomen. Associated mild wall thickening is noted about the small bowel intervening the two transition points. In addition, there is a small amount of reactive mesenteric fluid as well as inflammation. Trace pericardial effusion. TECHNICAL DOCUMENTATION: Quality ID # [id number]: Final reports with documentation of one or more dose reduction techniques (e.g., Automated exposure control, adjustment of the mA and/or kV according to patient size, use of iterative reconstruction technique) copyright 2011 [employer]- All Rights Reserved Chest X-Ray 09/07/19 20:50 IMPRESSION: No acute disease. copyright 2011 [employer]- All Rights Reserved Assessment & Plan - Diagnosis (1) Small bowel obstruction Is this a current diagnosis for this admission?: Yes (2) Essential (primary) hypertension Is this a current diagnosis for this admission?: Yes Plan: Continue intravenous labetalol, once p.o. resumes patient will be started back on metoprolol (3) Personal history of malignant neoplasm of prostate Is this a current diagnosis for this admission?: Yes - Time Time Spent with patient: 35 or more minutes Level of Care: MEDICAL
[2019-09-11] MEDS: KETOROLAC TROMETHAMINE INJ/PF 30 MG/1 ML SDV IV PRN (19:56)
[2019-09-12] MEDS: DEXTROSE 5%-LACTATED RINGERS 1,000 ML IV PRN ×3 (01:00→16:38)
--- NOTE | 2019-09-12 09:32 | PDOC PROGRESS REPORT ---
Subjective Reason For Visit: SMALL BOWEL OBSTRUCTION Patient states he has ambulated, voided without difficulty, and had minimal flatus. He did have a small bowel movement. Physical Exam Vital Signs: Temp Pulse Resp BP Pulse Ox 98.7 F 77 17 140/78 H 95 09/12/19 07:15 09/12/19 07:15 09/12/19 07:15 09/12/19 07:15 09/12/19 07:15 Intake & Output 09/11/19 09/12/19 09/13/19 06:59 06:59 06:59 Intake Total 3000 3019 Output Total 2050 700 Balance 950 2319 Weight 76.1 kg 75.5 kg General appearance: PRESENT: no acute distress GI/Abdominal exam: PRESENT: other - Incision is dry and intact; the abdomen is slightly distended. Results Laboratory Results: 09/10/19 05:03 09/11/19 05:41 Impressions: Abdomen/Pelvis CT 09/07/19 00:00 IMPRESSION: Overall, findings indicate a closed loop small bowel obstruction located within the left hemiabdomen. Associated mild wall thickening is noted about the small bowel intervening the two transition points. In addition, there is a small amount of reactive mesenteric fluid as well as inflammation. Trace pericardial effusion. TECHNICAL DOCUMENTATION: Quality ID # [id number]: Final reports with documentation of one or more dose reduction techniques (e.g., Automated exposure control, adjustment of the mA and/or kV according to patient size, use of iterative reconstruction technique) copyright 2011 [employer]- All Rights Reserved Chest X-Ray 09/07/19 20:50 IMPRESSION: No acute disease. copyright 2011 [employer]- All Rights Reserved Assessment & Plan - Diagnosis (1) Small bowel obstruction Is this a current diagnosis for this admission?: Yes Plan: Impression: Patient is 5 days status post exploratory laparotomy lysis of adhesions repair of incisional hernia. Ileus resolving but not completely. Recommendations: 1. Patient still a little distended; will start clear liquids locally 2. We will get patient up and showering. 3. Hopefully home in the next 44 to 48 hours.
[2019-09-12] MEDS: AMLODIPINE BESYLATE 10 MG TABLET PO SCH (10:27)
[2019-09-12] MEDS: LOSARTAN POTASSIUM 25 MG TABLET PO SCH (10:27)
[2019-09-12] MEDS: METOPROLOL TARTRATE 25 MG TABLET PO SCH ×2 (10:27→21:48)
[2019-09-12] MEDS: FAMOTIDINE INJ/PF 20 MG/2 ML SDV IV SCH ×2 (10:28→21:48)
[2019-09-12] MEDS: ENOXAPARIN SODIUM INJ 40 MG/0.4 ML DISP.SYRIN SUBCUT SCH (10:38)
--- NOTE | 2019-09-12 14:24 | PDOC PROGRESS REPORT ---
Subjective Progress Note for:: 09/12/19 Subjective:: Patient seen by the bedside, he was seen by the surgeon earlier this morning he had the BM this morning, still have some abdominal distention hopefully discharge in 24 to 48 hours time Reason For Visit: SMALL BOWEL OBSTRUCTION Physical Exam Vital Signs: Temp Pulse Resp BP Pulse Ox 98.2 F 71 16 152/81 H 96 09/12/19 10:48 09/12/19 10:48 09/12/19 10:48 09/12/19 10:48 09/12/19 10:48 Intake & Output 09/11/19 09/12/19 09/13/19 06:59 06:59 06:59 Intake Total 3000 3019 270 Output Total 2050 700 Balance 950 2319 270 Weight 76.1 kg 75.5 kg General appearance: PRESENT: no acute distress Eye exam: PRESENT: PERRLA Respiratory exam: PRESENT: clear to auscultation heidi Cardiovascular exam: PRESENT: +S1, +S2 GI/Abdominal exam: PRESENT: distended Neurological exam: PRESENT: alert, CN II-XII grossly intact Results Laboratory Results: 09/10/19 05:03 09/11/19 05:41 Impressions: Abdomen/Pelvis CT 09/07/19 00:00 IMPRESSION: Overall, findings indicate a closed loop small bowel obstruction located within the left hemiabdomen. Associated mild wall thickening is noted about the small bowel intervening the two transition points. In addition, there is a small amount of reactive mesenteric fluid as well as inflammation. Trace pericardial effusion. TECHNICAL DOCUMENTATION: Quality ID # 436: Final reports with documentation of one or more dose reduction techniques (e.g., Automated exposure control, adjustment of the mA and/or kV according to patient size, use of iterative reconstruction technique) copyright 2011 [employer]- All Rights Reserved Chest X-Ray 09/07/19 20:50 IMPRESSION: No acute disease. copyright 2011 [employer]- All Rights Reserved Assessment & Plan - Diagnosis (1) Small bowel obstruction Is this a current diagnosis for this admission?: Yes (2) Essential (primary) hypertension Is this a current diagnosis for this admission?: Yes Plan: Continue intravenous labetalol, once p.o. resumes patient will be started back on metoprolol (3) Personal history of malignant neoplasm of prostate Is this a current diagnosis for this admission?: Yes - Time Time Spent with patient: 15-24 minutes Level of Care: MEDICAL
[2019-09-12] MEDS: KETOROLAC TROMETHAMINE INJ/PF 30 MG/1 ML SDV IV PRN (21:49)
[2019-09-13] MEDS: DEXTROSE 5%-LACTATED RINGERS 1,000 ML IV PRN ×3 (01:48→19:05)
[2019-09-13] MEDS: METOPROLOL TARTRATE 25 MG TABLET PO SCH ×2 (10:00→21:51)
[2019-09-13] MEDS: FAMOTIDINE INJ/PF 20 MG/2 ML SDV IV SCH ×2 (10:00→21:51)
[2019-09-13] MEDS: TAMSULOSIN HCL 0.4 MG CAP.SR.24H PO SCH (10:00)
[2019-09-13] MEDS: AMLODIPINE BESYLATE 10 MG TABLET PO SCH (10:00)
[2019-09-13] MEDS: LOSARTAN POTASSIUM 25 MG TABLET PO SCH (10:00)
[2019-09-13] MEDS: ENOXAPARIN SODIUM INJ 40 MG/0.4 ML DISP.SYRIN SUBCUT SCH (10:45)
--- NOTE | 2019-09-13 11:10 | PDOC PROGRESS REPORT ---
Subjective Progress Note for:: 09/13/19 Reason For Visit: SMALL BOWEL OBSTRUCTION Physical Exam Vital Signs: Temp Pulse Resp BP Pulse Ox 98.3 F 70 18 142/77 H 96 09/13/19 10:58 09/13/19 10:58 09/13/19 10:58 09/13/19 10:58 09/13/19 10:58 Intake & Output 09/12/19 09/13/19 09/14/19 06:59 06:59 06:59 Intake Total 3019 2388 1000 Output Total 700 1000 Balance 2319 1388 1000 Weight 75.5 kg 72.7 kg Results Laboratory Results: 09/10/19 05:03 09/11/19 05:41 Impressions: Abdomen/Pelvis CT 09/07/19 00:00 IMPRESSION: Overall, findings indicate a closed loop small bowel obstruction located within the left hemiabdomen. Associated mild wall thickening is noted about the small bowel intervening the two transition points. In addition, there is a small amount of reactive mesenteric fluid as well as inflammation. Trace pericardial effusion. TECHNICAL DOCUMENTATION: Quality ID # 436: Final reports with documentation of one or more dose reduction techniques (e.g., Automated exposure control, adjustment of the mA and/or kV according to patient size, use of iterative reconstruction technique) copyright 2011 [employer]- All Rights Reserved Chest X-Ray 09/07/19 20:50 IMPRESSION: No acute disease. copyright 2011 [employer]- All Rights Reserved Assessment & Plan - Diagnosis (1) Small bowel obstruction Is this a current diagnosis for this admission?: Yes - Plan Summary Plan Summary: This is a 69-year-old male status post ex lap for small bowel obstruction. The patient is doing well this morning. He reports flatus and liquid BM's today. H e denies fevers, chills, nausea, vomiting. He does report incisional pain, that is relieved with intravenous medications. Aggressive pulmonary toilet. Cont to Ambulate. Tolerating liquids --> advance to regular diet. Start oral pain meds.
[2019-09-13] MEDS ORDERED: KETOROLAC TROMETHAMINE INJ/PF 30 MG/1 ML SDV IV PRN (11:16)
[2019-09-13] MEDS: HYDROCODONE/ACETAMINOPHEN 10-325 MG TABLET PO PRN ×2 (11:27→20:14)
--- NOTE | 2019-09-13 21:02 | PDOC PROGRESS REPORT ---
Subjective Progress Note for:: 09/13/19 Subjective:: Patient is doing quite well today Reason For Visit: SMALL BOWEL OBSTRUCTION Physical Exam Vital Signs: Temp Pulse Resp BP Pulse Ox 98.0 F 72 17 144/85 H 97 09/13/19 15:32 09/13/19 15:32 09/13/19 15:32 09/13/19 15:32 09/13/19 15:32 Intake & Output 09/12/19 09/13/19 09/14/19 06:59 06:59 06:59 Intake Total 3019 2388 2610 Output Total 700 1000 400 Balance 2319 1388 2210 Weight 75.5 kg 72.7 kg 72.7 kg General appearance: PRESENT: no acute distress Eye exam: PRESENT: PERRLA Respiratory exam: PRESENT: clear to auscultation heidi Cardiovascular exam: PRESENT: +S1, +S2 GI/Abdominal exam: PRESENT: soft Neurological exam: PRESENT: alert, CN II-XII grossly intact Results Laboratory Results: 09/10/19 05:03 09/11/19 05:41 Impressions: Abdomen/Pelvis CT 09/07/19 00:00 IMPRESSION: Overall, findings indicate a closed loop small bowel obstruction located within the left hemiabdomen. Associated mild wall thickening is noted about the small bowel intervening the two transition points. In addition, there is a small amount of reactive mesenteric fluid as well as inflammation. Trace pericardial effusion. TECHNICAL DOCUMENTATION: Quality ID # 436: Final reports with documentation of one or more dose reduction techniques (e.g., Automated exposure control, adjustment of the mA and/or kV according to patient size, use of iterative reconstruction technique) copyright 2011 [employer]- All Rights Reserved Chest X-Ray 09/07/19 20:50 IMPRESSION: No acute disease. copyright 2011 [employer]- All Rights Reserved Assessment & Plan - Diagnosis (1) Small bowel obstruction Is this a current diagnosis for this admission?: Yes Plan: Patient improved (2) Essential (primary) hypertension Is this a current diagnosis for this admission?: Yes (3) Personal history of malignant neoplasm of prostate Is this a current diagnosis for this admission?: Yes - Time Time Spent with patient: 15-24 minutes Level of Care: MEDICAL
--- NOTE | 2019-09-13 21:05 | PDOC DISCHARGE SUMMARY ---
Impression - Admit/DC Date/PCP Admission Date/Primary Care Provider: 09/07/19 20:47 ESPINOZA VALLE MD Discharge Date: 09/14/19 - Discharge Diagnosis (1) Small bowel obstruction Is this a current diagnosis for this admission?: Yes (2) Essential (primary) hypertension Is this a current diagnosis for this admission?: Yes (3) Personal history of malignant neoplasm of prostate Is this a current diagnosis for this admission?: Yes (4) Postoperative ileus Is this a current diagnosis for this admission?: Yes (5) Incisional hernia Is this a current diagnosis for this admission?: Yes - Assessment Summary: This is 69-year-old male who was admitted to the hospital through the emergency room on 06 September with increased abdominal distention diagnosis was a small bowel obstruction on CAT scan. He was taken to the operating room by Dr. hdez for exploratory laparotomy with repair of incisional hernia and lysis of adhesions. Postoperatively he had a routine benign postop course NG tube was eventually removed on postop day 4 and he was started on a clear liquid diet. Started having flatus and then bowel movements and he was advanced slowly to a regular diet. By the time of discharge he is afebrile stable vital signs tolerating a soft diet having bowel function his wound is clean and dry is ready for discharge home. He will be given a follow-up appointment in surgical clinic in 1 week after discharge for staple removal. He will be given a pain prescription for tramadol. - Additional Information Resuscitation Status: Full Code Referrals: [facility] [Provider Group] - 09/20/19 8:00 am Prescriptions: Tramadol HCl [Ultram 50 mg Tablet] 50 mg PO ASDIR PRN #20 tablet PRN Reason: Home Medications: Metoprolol Succinate [Toprol XL 100 mg Tablet] 100 mg PO DAILY 07/24/15 Amlodipine Besylate [Norvasc 10 mg Tablet] 10 mg PO DAILY 09/07/19 Sildenafil Citrate 100 mg PO DAILY PRN 09/07/19 Tamsulosin HCl [Flomax] 0.4 mg PO DAILY 09/07/19 Losartan/Hydrochlorothiazide [Losartan-Hctz 100-25 mg Tab] 1 tab PO DAILY 09/09/19 Tramadol HCl [Ultram 50 mg Tablet] 50 mg PO ASDIR PRN #20 tablet 09/14/19 History of Present Illiness History of Present Illness: FLORI GARCIA is a 69 year old male, He came to the office today for evaluation of 1 day history of abdominal pain associated with vomiting, in the office he was evaluated there was tenderness around the umbilical area, there was cough impulse, he has an incision above the umbilicus, patient stated that the decision was when he had robotic prostatectomy. I was particularly concerned about obstruction or incarcerated small bowel so I offered the hospital admission directly for further evaluation. He was kept n.p.o. CAT scan of the abdomen and pelvis with IV contrast was obtained it demonstrated a closed-loop small bowel obstruction located within the left hemiabdomen. Associated mild wall thickening is noted of the small bowel intervening the 2 transition points also found was a small amount of reactive mesenteric fluid. I spoke to Dr. lieberman the surgeon director of quality control he was kind enough to see the patient in consultation patient will require laparotomy tonight Hospital Course Hospital Course: Patient was admitted for the management of small bowel obstruction, he underwent laparotomy with lysis of adhesions and repair of the hernia defect he had several prolonged postoperative ileus but patient stabilized for discharge today Physical Exam Vital Signs: Temp Pulse Resp BP Pulse Ox 98.0 F 72 17 144/85 H 97 09/13/19 15:32 09/13/19 15:32 09/13/19 15:32 09/13/19 15:32 09/13/19 15:32 Intake & Output 09/12/19 09/13/19 09/14/19 06:59 06:59 06:59 Intake Total 3019 2388 2610 Output Total 700 1000 400 Balance 2319 1388 2210 Weight 75.5 kg 72.7 kg 72.7 kg General appearance: PRESENT: no acute distress Eye exam: PRESENT: PERRLA Respiratory exam: PRESENT: clear to auscultation heidi Cardiovascular exam: PRESENT: +S1, +S2 GI/Abdominal exam: PRESENT: soft Neurological exam: PRESENT: alert, CN II-XII grossly intact Results Laboratory Results: WBC 4.2 10^3/uL (4.0-10.5) 09/10/19 05:03 RBC 4.73 10^6/uL (4.35-5.55) 09/10/19 05:03 Hgb 13.6 g/dL (13.5-17.0) 09/10/19 05:03 Hct 40.2 % (37.9-51.0) 09/10/19 05:03 MCV 85 fl (80-97) 09/10/19 05:03 MCH 28.7 pg (27.0-33.4) 09/10/19 05:03 MCHC 33.7 g/dL (32.0-36.0) 09/10/19 05:03 RDW 13.9 % (11.5-14.0) 09/10/19 05:03 Plt Count 151 10^3/uL (150-450) 09/10/19 05:03 Lymph % (Auto) 26.2 % (13-45) 09/10/19 05:03 [place] % (Auto) 13.4 % (3-13) H 09/10/19 05:03 Eos % (Auto) 3.8 % (0-6) 09/10/19 05:03 Baso % (Auto) 0.4 % (0-2) 09/10/19 05:03 Absolute Neuts (auto) 2.3 10^3/uL (1.7-8.2) 09/10/19 05:03 Absolute Lymphs (auto) 1.1 10^3/uL (0.5-4.7) 09/10/19 05:03 Absolute Monos (auto) 0.6 10^3/uL (0.1-1.4) 09/10/19 05:03 Absolute Eos (auto) 0.2 10^3/uL (0.0-0.6) 09/10/19 05:03 Absolute Basos (auto) 0.0 10^3/uL (0.0-0.2) 09/10/19 05:03 Seg Neutrophils % 56.2 % (42-78) 09/10/19 05:03 Sodium 135.8 mmol/L (137-145) L 09/11/19 05:41 Potassium 3.3 mmol/L (3.6-5.0) L 09/11/19 05:41 Chloride 103 mmol/L (98-107) 09/11/19 05:41 Carbon Dioxide 24 mmol/L (22-30) 09/11/19 05:41 Anion Gap 9 (5-19) 09/11/19 05:41 BUN 7 mg/dL (7-20) 09/11/19 05:41 Creatinine 0.77 mg/dL (0.52-1.25) 09/11/19 05:41 Est GFR ( Amer) > 60 (>60) 09/11/19 05:41 Est GFR (MDRD) Non-Af > 60 (>60) 09/11/19 05:41 Glucose 125 mg/dL (75-110) H 09/11/19 05:41 Calcium 7.2 mg/dL (8.4-10.2) L 09/11/19 05:41 Total Bilirubin 1.8 mg/dL (0.2-1.3) H 09/08/19 04:51 Direct Bilirubin 0.0 mg/dL (0.0-0.4) 09/08/19 04:51 Neonat Total Bilirubin Not Reportable 09/08/19 04:51 Neonat Direct Bilirubin Not Reportable 09/08/19 04:51 Neonat Indirect Bili Not Reportable 09/08/19 04:51 AST 25 U/L (17-59) 09/08/19 04:51 ALT 18 U/L (<50) 09/08/19 04:51 Alkaline Phosphatase 65 U/L (38-126) 09/08/19 04:51 Total Protein 6.5 g/dL (6.3-8.2) 09/08/19 04:51 Albumin 3.5 g/dL (3.5-5.0) 09/08/19 04:51 Urine Color YELLOW 09/07/19 20:15 Urine Appearance CLEAR 09/07/19 20:15 Urine pH 6.0 (5.0-9.0) 09/07/19 20:15 Ur Specific [place] 1.043 09/07/19 20:15 Urine Protein NEGATIVE mg/dL (NEGATIVE) 09/07/19 20:15 Urine Glucose (UA) NEGATIVE mg/dL (NEGATIVE) 09/07/19 20:15 Urine Ketones NEGATIVE mg/dL (NEGATIVE) 09/07/19 20:15 Urine Blood NEGATIVE (NEGATIVE) 09/07/19 20:15 Urine Nitrite NEGATIVE (NEGATIVE) 09/07/19 20:15 Urine Bilirubin NEGATIVE (NEGATIVE) 09/07/19 20:15 Urine Urobilinogen NEGATIVE mg/dL (<2.0) 09/07/19 20:15 Ur Leukocyte Esterase NEGATIVE (NEGATIVE) 09/07/19 20:15 Urine WBC (Auto) 0 /HPF 09/07/19 20:15 Urine RBC (Auto) 1 /HPF 09/07/19 20:15 Urine Mucus (Auto) RARE /LPF 09/07/19 20:15 Urine Ascorbic Acid NEGATIVE (NEGATIVE) 09/07/19 20:15 Blood Type B POSITIVE 09/07/19 21:40 Antibody Screen NEGATIVE 09/07/19 21:40 Impressions: Abdomen/Pelvis CT 09/07/19 00:00 IMPRESSION: Overall, findings indicate a closed loop small bowel obstruction located within the left hemiabdomen. Associated mild wall thickening is noted about the small bowel intervening the two transition points. In addition, there is a small amount of reactive mesenteric fluid as well as inflammation. Trace pericardial effusion. TECHNICAL DOCUMENTATION: Quality ID # 436: Final reports with documentation of one or more dose reduction techniques (e.g., Automated exposure control, adjustment of the mA and/or kV according to patient size, use of iterative reconstruction technique) copyright 2011 [employer]- All Rights Reserved Chest X-Ray 09/07/19 20:50 IMPRESSION: No acute disease. copyright 2011 [employer]- All Rights Reserved Stroke Is this a Stroke Patient?: No Acute Heart Failure - Is this a Heart Failure Patient?: No
[2019-09-13] MEDS ORDERED: (PENDING PHARMACY ID) (Losartan/Hydrochlorothiazide [Losartan-Hctz 100-25 Mg Tab] 1 TAB) PO SCH (21:15)
--- NOTE | 2019-09-14 08:30 | PDOC DISCHARGE SUMMARY ---
General - Admit/Disc Date/PCP Admission Date/Primary Care Provider: 09/07/19 20:47 ESPINOZA VALLE MD Discharge Date: 09/14/19 - Discharge Diagnosis Final Diagnosis: small bowel obstruction - Assessment Summary: This is 69-year-old male who was admitted to the hospital through the emergency room on 06 September with increased abdominal distention diagnosis was a small bowel obstruction on CAT scan. He was taken to the operating room by Dr. hdez for exploratory laparotomy with repair of incisional hernia and lysis of adhesions. Postoperatively he had a routine benign postop course NG tube was eventually removed on postop day 4 and he was started on a clear liquid diet. Started having flatus and then bowel movements and he was advanced slowly to a regular diet. By the time of discharge he is afebrile stable vital signs tolerating a soft diet having bowel function his wound is clean and dry is ready for discharge home. He will be given a follow-up appointment in surgical clinic in 1 week after discharge for staple removal. He will be given a pain prescription for tramadol. - Additional Information Resuscitation Status: Full Code Discharge Activity: No Lifting Over 10 Pounds Referrals: [facility] [Provider Group] - 09/20/19 8:00 am Prescriptions: Tramadol HCl [Ultram 50 mg Tablet] 50 mg PO ASDIR PRN #20 tablet PRN Reason: Home Medications: Metoprolol Succinate [Toprol XL 100 mg Tablet] 100 mg PO DAILY 07/24/15 Amlodipine Besylate [Norvasc 10 mg Tablet] 10 mg PO DAILY 09/07/19 Sildenafil Citrate 100 mg PO DAILY PRN 09/07/19 Tamsulosin HCl [Flomax] 0.4 mg PO DAILY 09/07/19 Losartan/Hydrochlorothiazide [Losartan-Hctz 100-25 mg Tab] 1 tab PO DAILY 09/09/19 Tramadol HCl [Ultram 50 mg Tablet] 50 mg PO ASDIR PRN #20 tablet 09/14/19 History of Present Illiness History of Present Illness: FLORI GARCIA is a 69 year old male Physical Exam Vital Signs: Temp Pulse Resp BP Pulse Ox 97.9 F 68 18 146/79 H 97 09/13/19 23:15 09/13/19 23:15 09/13/19 23:15 09/13/19 23:15 09/13/19 23:15 Intake & Output 09/13/19 09/14/19 09/15/19 06:59 06:59 06:59 Intake Total 2388 2610 Output Total 1000 400 Balance 1388 2210 Weight 72.7 kg 73.5 kg Results Laboratory Results: WBC 4.2 10^3/uL (4.0-10.5) 09/10/19 05:03 RBC 4.73 10^6/uL (4.35-5.55) 09/10/19 05:03 Hgb 13.6 g/dL (13.5-17.0) 09/10/19 05:03 Hct 40.2 % (37.9-51.0) 09/10/19 05:03 MCV 85 fl (80-97) 09/10/19 05:03 MCH 28.7 pg (27.0-33.4) 09/10/19 05:03 MCHC 33.7 g/dL (32.0-36.0) 09/10/19 05:03 RDW 13.9 % (11.5-14.0) 09/10/19 05:03 Plt Count 151 10^3/uL (150-450) 09/10/19 05:03 Lymph % (Auto) 26.2 % (13-45) 09/10/19 05:03 [place] % (Auto) 13.4 % (3-13) H 09/10/19 05:03 Eos % (Auto) 3.8 % (0-6) 09/10/19 05:03 Baso % (Auto) 0.4 % (0-2) 09/10/19 05:03 Absolute Neuts (auto) 2.3 10^3/uL (1.7-8.2) 09/10/19 05:03 Absolute Lymphs (auto) 1.1 10^3/uL (0.5-4.7) 09/10/19 05:03 Absolute Monos (auto) 0.6 10^3/uL (0.1-1.4) 09/10/19 05:03 Absolute Eos (auto) 0.2 10^3/uL (0.0-0.6) 09/10/19 05:03 Absolute Basos (auto) 0.0 10^3/uL (0.0-0.2) 09/10/19 05:03 Seg Neutrophils % 56.2 % (42-78) 09/10/19 05:03 Sodium 135.8 mmol/L (137-145) L 09/11/19 05:41 Potassium 3.3 mmol/L (3.6-5.0) L 09/11/19 05:41 Chloride 103 mmol/L (98-107) 09/11/19 05:41 Carbon Dioxide 24 mmol/L (22-30) 09/11/19 05:41 Anion Gap 9 (5-19) 09/11/19 05:41 BUN 7 mg/dL (7-20) 09/11/19 05:41 Creatinine 0.77 mg/dL (0.52-1.25) 09/11/19 05:41 Est GFR ( Amer) > 60 (>60) 09/11/19 05:41 Est GFR (MDRD) Non-Af > 60 (>60) 09/11/19 05:41 Glucose 125 mg/dL (75-110) H 09/11/19 05:41 Calcium 7.2 mg/dL (8.4-10.2) L 09/11/19 05:41 Total Bilirubin 1.8 mg/dL (0.2-1.3) H 09/08/19 04:51 Direct Bilirubin 0.0 mg/dL (0.0-0.4) 09/08/19 04:51 Neonat Total Bilirubin Not Reportable 09/08/19 04:51 Neonat Direct Bilirubin Not Reportable 09/08/19 04:51 Neonat Indirect Bili Not Reportable 09/08/19 04:51 AST 25 U/L (17-59) 09/08/19 04:51 ALT 18 U/L (<50) 09/08/19 04:51 Alkaline Phosphatase 65 U/L (38-126) 09/08/19 04:51 Total Protein 6.5 g/dL (6.3-8.2) 09/08/19 04:51 Albumin 3.5 g/dL (3.5-5.0) 09/08/19 04:51 Urine Color YELLOW 09/07/19 20:15 Urine Appearance CLEAR 09/07/19 20:15 Urine pH 6.0 (5.0-9.0) 09/07/19 20:15 Ur Specific [place] 1.043 03/24/20 20:15 Urine Protein NEGATIVE mg/dL (NEGATIVE) 09/07/19 20:15 Urine Glucose (UA) NEGATIVE mg/dL (NEGATIVE) 09/07/19 20:15 Urine Ketones NEGATIVE mg/dL (NEGATIVE) 09/07/19 20:15 Urine Blood NEGATIVE (NEGATIVE) 09/07/19 20:15 Urine Nitrite NEGATIVE (NEGATIVE) 09/07/19 20:15 Urine Bilirubin NEGATIVE (NEGATIVE) 09/07/19 20:15 Urine Urobilinogen NEGATIVE mg/dL (<2.0) 09/07/19 20:15 Ur Leukocyte Esterase NEGATIVE (NEGATIVE) 09/07/19 20:15 Urine WBC (Auto) 0 /HPF 09/07/19 20:15 Urine RBC (Auto) 1 /HPF 09/07/19 20:15 Urine Mucus (Auto) RARE /LPF 09/07/19 20:15 Urine Ascorbic Acid NEGATIVE (NEGATIVE) 09/07/19 20:15 Blood Type B POSITIVE 09/07/19 21:40 Antibody Screen NEGATIVE 09/07/19 21:40 Impressions: Abdomen/Pelvis CT 09/07/19 00:00 IMPRESSION: Overall, findings indicate a closed loop small bowel obstruction located within the left hemiabdomen. Associated mild wall thickening is noted about the small bowel intervening the two transition points. In addition, there is a small amount of reactive mesenteric fluid as well as inflammation. Trace pericardial effusion. TECHNICAL DOCUMENTATION: Quality ID # 436: Final reports with documentation of one or more dose reduction techniques (e.g., Automated exposure control, adjustment of the mA and/or kV according to patient size, use of iterative reconstruction technique) copyright 2011 [employer]- All Rights Reserved Chest X-Ray 09/07/19 20:50 IMPRESSION: No acute disease. copyright 2011 [employer]- All Rights Reserved
[2019-09-14 09:03] VITALS: BP 139/70
[2019-09-14] MEDS ORDERED: LOSARTAN POTASSIUM 50 MG TABLET PO SCH (10:00)
[2019-09-14] MEDS ORDERED: HYDROCHLOROTHIAZIDE 25 MG TABLET PO SCH (10:00)
[2019-09-14] MEDS: METOPROLOL TARTRATE 25 MG TABLET PO SCH (10:14)
[2019-09-14] MEDS: AMLODIPINE BESYLATE 10 MG TABLET PO SCH (10:15)
[2019-09-14] MEDS: TAMSULOSIN HCL 0.4 MG CAP.SR.24H PO SCH (10:15)
[2019-09-14] MEDS: ENOXAPARIN SODIUM INJ 40 MG/0.4 ML DISP.SYRIN SUBCUT SCH (10:24)
[2019-09-14] MEDS: FAMOTIDINE INJ/PF 20 MG/2 ML SDV IV SCH (10:34)
== END 2019-09-14 11:15 | disposition home or self-care (01) | DRG 354 ==
LOC: 4N 16:37 → OBSVTOIN 20:47
PROVIDERS: ADMIT Internal Medicine; ATTEND Internal Medicine
PROC: 0WQF0ZZ Repair Abdominal Wall, Open Approach (ICD-10-PCS; principal; 2019-09-07 22:30)
PROC: 3E02340 Introduction of Influenza Vaccine into Muscle, Percutaneous Approach (ICD-10-PCS; 2019-09-14)
DX: K43.2 Incisional hernia without obstruction or gangrene (principal); K91.89 Other postprocedural complications and disorders of digestive system; K56.7 Ileus, unspecified; I10 Essential (primary) hypertension; Y83.6 Removal of other organ (partial) (total) as the cause of abnormal reaction of the patient, or of later complication, without mention of misadventure at the time of the procedure; Z23 Encounter for immunization; Z79.899 Other long term (current) drug therapy; Z85.46 Personal history of malignant neoplasm of prostate; Z90.79 Acquired absence of other genital organ(s); Z92.3 Personal history of irradiation; Z87.891 Personal history of nicotine dependence
CPT/HCPCS: 36415; 71045; 74177; 790; 80048; 80053; 80076; 81001; 85025; 85027; 86850; 86900; 86901; 90686; 93005; 93010; J0330; J0690; J1170; J1650; J1885; J2250; J2270; J2405; J2704; J2710; J3010; J3480; J3490; J7030; J7121; S0028